=== PATIENT | female | born 1945 | race Caucasian/White ===

== ENCOUNTER 2020-05-14 06:47 | Day surgery (SDC) | payer MEDICARE ==
[2020-05-14] MEDS ORDERED: Midazolam 1 MG/ML 2 ML SDV ONE (07:04)
[2020-05-14] MEDS ORDERED: fentaNYL 100 MCG/2 ML SDV ONE (07:04)
[2020-05-14] MEDS ORDERED: Propofol 200 MG/20 ML SDV ONE (07:04)
[2020-05-14] MEDS ORDERED: Sodium Chloride 0.9% 1,000 ML IV SCH (07:30)
--- NOTE | 2020-05-14 13:14 | OR ---
DATE OF PROCEDURE: 05/14/2020 SURGEON: Candelario Roth MD PROCEDURE: Colonoscopy. FINDINGS: Normal colonoscopy. COMPLICATIONS: None. 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 ANESTHESIA: MAC. PREOPERATIVE DIAGNOSIS: Family history of colorectal cancer. POSTOPERATIVE DIAGNOSIS: Family history of colorectal cancer. RISKS: Risks, benefits, alternatives, and limitations including, but not limited to infection, bleeding, and perforation were explained to the patient. PREP: Acceptable, approximately 90% of the luminal surface could be seen with some liquid and solid stool remaining. PROCEDURE IN DETAIL: The patient was placed in left lateral decubitus position. Digital rectal exam was performed without abnormality. Scope was introduced and advanced atraumatically to the ileocecal valve. A photo was taken of this. The scope was brought back through the ascending, transverse, descending colon, and retroflexed. No evidence of old or new blood. No masses. No polyps. No diverticulosis or diverticulitis. No abnormalities on retroflexion. The patient tolerated the procedure well. Candelario Roth MD /[id number]
== END 2020-05-14 12:02 | disposition home or self-care (01) ==
LOC: JP.SDS 06:47
PROVIDERS: ATTEND Surgery
DX: Z12.11 Encounter for screening for malignant neoplasm of colon (principal); E78.5 Hyperlipidemia, unspecified; K21.9 Gastro-esophageal reflux disease without esophagitis; Z80.0 Family history of malignant neoplasm of digestive organs
CPT/HCPCS: G0105; J2250; J2704; J3010; J7030

== ENCOUNTER 2020-12-12 16:27 | Emergency (ER) | payer MEDICARE ==
[2020-12-12] MEDS ORDERED: HYDROmorphone 0.5 MG/0.5 ML Syringe IM ONE (17:45)
[2020-12-12] MEDS ORDERED: Diphtheria,Pertussis(Acell),Tetanus Vaccine 0.5 ML Syringe IM ONE (17:59)
[2020-12-12] MEDS ORDERED: Bacitracin Oint 1 GM U/D Packet TOP ONE (18:00)
--- NOTE | 2020-12-12 18:04 | EDM.PDOC ---
ED HPI GENERAL MEDICAL PROBLEM - General Chief Complaint: Upper Extremity Injury/Pain Stated Complaint: CUT FINGER Time Seen by Provider: 12/12/20 18:00 Source of Information: Reports: Patient, Old Records History Limitations: Reports: No Limitations - History of Present Illness INITIAL COMMENTS - FREE TEXT/NARRATIVE: 75 yo female got her R 5th finger tip caught in her basement door just before arrival. She thinks here last tetanus was in '91. Here with . 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 below) (none) Right Finger-Little Pain Score (Numeric/FACES): 10 - Related Data Allergies Allergy/AdvReac Type Severity Reaction Status Date / Time adhesive Allergy Rash Verified 12/12/20 17:15 latex Allergy Rash Verified 12/12/20 17:15 Sulfa (Sulfonamide Allergy Cannot Verified 12/12/20 17:15 Antibiotics) Remember Home Meds: Home Meds Ascorbic Acid [Vitamin C] 1,000 mg PO DAILY 10/31/14 [History] Aspirin [Halfprin] 81 mg PO DAILY 10/31/14 [History] Cholecalciferol (Vitamin D3) [Vitamin D-3] 2,000 unit PO DAILY 10/31/14 [History] Levothyroxine Sodium [Synthroid] 25 mcg PO ACBRK 10/31/14 [History] Magnesium Oxide [Magnesium] 400 mg PO BID 10/31/14 [History] Multivitamin with Minerals [Multiple Vitamin] 1 tab PO DAILY 10/31/14 [History] [place]-3S/DHA/Epa/Fish Oil [[place]-3 Fish Oil 1,000 mg Sfgl] 1 each PO DAILY 10/31/14 [History] Omeprazole 40 mg PO DAILY 10/31/14 [History] Calcium Carbonate/Vitamin D3 [Calcium Carbonate/Vitamin D 600 MG-200 Unit] 1 tab PO DAILY 05/10/20 [History] Cyanocobalamin (Vitamin B12) [Vitamin B12] 1,000 mcg PO DAILY 05/10/20 [History] L.acidoph,Paracasei, B.lactis [Probiotic] 1 each PO DAILY 05/10/20 [History] Naproxen 500 mg PO BID 05/10/20 [History] Past Medical History HEENT History: Reports: Impaired Vision Gastrointestinal History: Reports: GERD, Hiatal Hernia 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: Musculoskeletal History: Reports: Back Pain, Chronic, Osteoarthritis, Osteoporosis, Other (See Below) Other Musculoskeletal History: left knee pain Endocrine/Metabolic History: Reports: Hypothyroidism Dermatologic History: Reports: Eczema - Past Surgical History Head Surgeries/Procedures: Reports: None HEENT Surgical History: Reports: Tonsillectomy GI Surgical History: Reports: Colonoscopy, EGD Endocrine Surgical History: Reports: None Musculoskeletal Surgical History: Reports: None Other Musculoskeletal Surgeries/Procedures:: bilateral feet surgeries Dermatological Surgical History: Reports: None Social & Family History - Family History Family Medical History: No Pertinent Family History - Tobacco Use Tobacco Use Status *Q: Never Tobacco User Second Hand Smoke Exposure: No - Caffeine Use Caffeine Use: Reports: Coffee, Tea - Recreational Drug Use Recreational Drug Use: No Review of Systems - Review of Systems Review Of Systems: See Below Constitutional: Reports: No Symptoms Musculoskeletal: Reports: Hand Pain (R 5th finger pain) Skin: Reports: Wound (laceration of the R 5th finger tip) Neurological: Reports: No Symptoms ED EXAM, GENERAL - Physical Exam Exam: See Below Exam Limited By: No Limitations General Appearance: Alert, WD/WN, No Apparent Distress Extremities: Other (bleeding wound of the R 5th finger.) Neurological: Alert, Oriented, CN II-XII Intact, Normal Cognition, No Motor/Sensory Deficits Psychiatric: Normal Affect, Normal Mood Skin Exam: Warm, Dry, Normal Color, No Rash, Wound/Incision (laceration distal R 5th finger.) ED TRAUMA EXTREMITY PROCEDURES - Laceration/Wound Repair Right Distal Digit - 5th (Baby) Appearance: Subcutaneous, Linear, Clean Distal NVT: Neuro & Vascular Intact Anesthetic Type: Digital Local Anesthesia - Lidocaine (Xylocaine): 1% Plain Local Anesthetic Volume: 4cc Skin Prep: Saline Saline Irrigation (cc's): 30 Exploration/Debridement/Repair: Wound Explored, Minimal Debridement Closed With: Sutures Suture Size: 5-0 # of Sutures: 6 Suture Type: Nylon, Interrupted, Simple Drain Placement: No Sterile Dressing Applied: Nurse Tetanus Status Addressed: Yes Complications: No Course - Vital Signs Last Recorded V/S: Last Vital Signs Temp 36.6 C 12/12/20 17:21 Pulse 111 H 12/12/20 17:21 Resp 16 12/12/20 17:21 BP 154/101 H 12/12/20 17:21 Pulse Ox 97 12/12/20 17:21 - Orders/Labs/Meds Orders: Active Orders 24 hr Category Date Time Status Vaccines to be Administered [RC] PER UNIT ROUTINE Care 12/12/20 17:59 Active Fingers Fifth Digit Rt F9 [CR] Stat Exams 12/12/20 17:59 Taken Meds: Medications Discontinued Medications Generic Name Dose Route Start Last Admin Trade Name Freq PRN Reason Stop Dose Admin Bacitracin 1 dose 12/12/20 18:00 12/12/20 18:21 Bacitracin Oint 1 Gm TOP 12/12/20 18:01 1 dose ONETIME ONE Administration Cephalexin 500 mg 12/12/20 18:22 Keflex PO 12/12/20 18:23 ONETIME ONE Diphtheria/Tetanus/Acell Pertussis 0.5 ml 12/12/20 17:59 12/12/20 18:20 Boostrix IM 12/12/20 18:00 0.5 ml .ONCE ONE Administration Gelatin 1 each 12/12/20 19:11 Gelfoam 12-7 Mm TOP 12/12/20 19:12 ONETIME ONE Hydromorphone HCl 0.5 mg 12/12/20 17:45 12/12/20 17:59 Dilaudid IM 12/12/20 17:46 0.5 mg ONETIME ONE Administration Lidocaine HCl 5 ml 12/12/20 18:25 Xylocaine-Mpf 1% INJECT 12/12/20 18:26 ONETIME ONE - Radiology Interpretation Free Text/Narrative:: R 5th finger X-ray-tuft fx Departure - Departure Time of Disposition: 19:25 Disposition: Home, Self-Care 01 Condition: Fair Clinical Impression: Open fracture of tuft of distal phalanx of finger - Discharge Information *PRESCRIPTION DRUG MONITORING PROGRAM REVIEWED*: No *COPY OF PRESCRIPTION DRUG MONITORING REPORT IN PATIENT MELISSA: No Referrals: Robert Montesinos MD [Primary Care Provider] - Forms: ED Department Discharge Additional Instructions: Keep wound elevated above your heart. Keep wound clean for 3 days. Take acetaminophen for pain relief. Starting at bedtime tomorrow remove the current dressing and clean with 1/2 water and 1/2 peroxide. Dry. Apply antibiotic ointment and a new dressing. Stitches out in 9 days. Recheck sooner for signs of infection. Take cephalexin 500 mg every 8 hrs for 9 more doses. Sepsis Event Note (ED) - Evaluation Sepsis Screening Result: No Definite Risk - Focused Exam Vital Signs: Vital Signs Temp Pulse Resp BP Pulse Ox 12/12/20 17:21 36.6 C 111 H 16 154/101 H 97 12/12/20 17:15 36.6 C 111 H 16 154/101 H 97 - My Orders Last 24 Hours: My Active Orders 12/12/20 17:59 Vaccines to be Administered [RC] PER UNIT ROUTINE Fingers Fifth Digit Rt F9 [CR] Stat - Assessment/Plan Last 24 Hours: My Active Orders 12/12/20 17:59 Vaccines to be Administered [RC] PER UNIT ROUTINE Fingers Fifth Digit Rt F9 [CR] Stat
[2020-12-12] MEDS ORDERED: Cephalexin 250 MG Cap PO ONE (18:22)
[2020-12-12] MEDS ORDERED: Gelatin Sponge,Absorbable 12-7 mm Sponge TOP ONE (19:11)
[2020-12-12] MEDS ORDERED: Ondansetron 4 MG Tab.DIS PO ONE (19:27)
--- NOTE | 2020-12-13 10:15 | CR ---
Fingers Fifth Digit Rt F9 CLINICAL HISTORY: Trauma FINDINGS: There is soft tissue disruption in the distal fifth digit. There is a tuft fracture IMPRESSION: Tuft fracture fifth distal phalanx
== END 2020-12-12 19:50 | disposition home or self-care (01) ==
LOC: JP.ED 16:27
DX: S62.636B Displaced fracture of distal phalanx of right little finger, initial encounter for open fracture (principal); K21.9 Gastro-esophageal reflux disease without esophagitis; M19.90 Unspecified osteoarthritis, unspecified site; E03.9 Hypothyroidism, unspecified; Z23 Encounter for immunization; Z91.048 Other nonmedicinal substance allergy status; Z88.2 Allergy status to sulfonamides; Z91.040 Latex allergy status; Z79.82 Long term (current) use of aspirin; Z79.899 Other long term (current) drug therapy; W23.0XXA Caught, crushed, jammed, or pinched between moving objects, initial encounter; Y92.89 Other specified places as the place of occurrence of the external cause
CPT/HCPCS: 12001; 73140-26-F9; 73140-F9; 90471; 90715; 96372; 99283; 99283-25; A9270-GY; J1170

== ENCOUNTER 2021-06-13 16:00 | Emergency (ER) | payer MEDICARE ==
[2021-06-13] MEDS ORDERED: Aspirin 81 MG Tab.Chew PO ONE (17:32)
[2021-06-13] MEDS ORDERED: Lisinopril 10 MG Tab PO ONE (17:32)
--- NOTE | 2021-06-13 17:33 | EDM.PDOC ---
ED HPI GENERAL MEDICAL PROBLEM - General Chief Complaint: Neurological Problem Stated Complaint: POSSIBLE STROKE Time Seen by Provider: 06/13/21 17:05 Source of Information: Reports: Patient, Old Records, RN History Limitations: Reports: No Limitations - History of Present Illness INITIAL COMMENTS - FREE TEXT/NARRATIVE: 76 yo female presents after a 15 min episode about 8 AM today of R facial numbness, slurred speech, and R posterior hand numbness. She has been fully normal for her since then. She has noticed that her BP is running a little high all day. No KEARNS. No heart palpitations. She is a non-smoker. She is on ASA [address] Turcios is her primary and they called him today and he was not available so was directed to the ER. She recently had a carotid US ordered by her doctor for recurrent R hand numbness like what she had today. No hx of afib. Here with her . 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) - Related Data Allergies Allergy/AdvReac Type Severity Reaction Status Date / Time adhesive Allergy Rash Verified 06/13/21 16:24 latex Allergy Rash Verified 06/13/21 16:24 Sulfa (Sulfonamide Allergy Cannot Verified 06/13/21 16:24 Antibiotics) Remember Home Meds: Home Meds Ascorbic Acid [Vitamin C] 1,000 mg PO DAILY 10/31/14 [History] Aspirin [Halfprin] 81 mg PO DAILY 10/31/14 [History] Cholecalciferol (Vitamin D3) [Vitamin D-3] 2,000 unit PO DAILY 10/31/14 [History] Levothyroxine Sodium [Synthroid] 25 mcg PO ACBRK 10/31/14 [History] Magnesium Oxide [Magnesium] 400 mg PO BID 10/31/14 [History] Multivitamin with Minerals [Multiple Vitamin] 1 tab PO DAILY 10/31/14 [History] [place]-3S/DHA/Epa/Fish Oil [[place]-3 Fish Oil 1,000 mg Sfgl] 1 each PO DAILY 10/31/14 [History] Omeprazole 40 mg PO DAILY 10/31/14 [History] Calcium Carbonate/Vitamin D3 [Calcium Carbonate/Vitamin D 600 MG-200 Unit] 1 tab PO DAILY 05/10/20 [History] Cyanocobalamin (Vitamin B12) [Vitamin B12] 1,000 mcg PO DAILY 05/10/20 [History] L.acidoph,Paracasei, B.lactis [Probiotic] 1 each PO DAILY 05/10/20 [History] Past Medical History HEENT History: Reports: Impaired Vision Cardiovascular History: Reports: None Respiratory History: Reports: None Gastrointestinal History: Reports: GERD, Hiatal Hernia 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 States about 2 months about she had a masive headache on the left side Psychiatric History: Reports: None Endocrine/Metabolic History: Reports: Hypothyroidism Dermatologic History: Reports: Eczema - Infectious Disease History Infectious Disease History: Reports: Chicken Pox, Influenza, Measles, Mumps - Past Surgical History Head Surgeries/Procedures: Reports: None HEENT Surgical History: Reports: Tonsillectomy GI Surgical History: Reports: Colonoscopy, EGD Endocrine Surgical History: Reports: None Musculoskeletal Surgical History: Reports: None Other Musculoskeletal Surgeries/Procedures:: bilateral feet surgeries Dermatological Surgical History: Reports: None Social & Family History - Family History Family Medical History: No Pertinent Family History - Tobacco Use Tobacco Use Status *Q: Never Tobacco User - Caffeine Use Caffeine Use: Reports: Coffee - Recreational Drug Use Recreational Drug Use: No ED ROS GENERAL - Review of Systems Review Of Systems: See Below Constitutional: Reports: No Symptoms HEENT: Reports: No Symptoms Respiratory: Reports: No Symptoms Cardiovascular: Reports: No Symptoms. Denies: Palpitations GI/Abdominal: Reports: No Symptoms : Reports: No Symptoms Musculoskeletal: Reports: No Symptoms Skin: Reports: No Symptoms Neurological: Reports: Numbness (R face, R hand dorsum), Change in Speech (slurring) ED EXAM, NEURO - Physical Exam Exam: See Below Exam Limited By: No Limitations General Appearance: Alert, WD/WN, No Apparent Distress Eye Exam: Bilateral Eye: Normal Inspection Ears: Normal External Exam, Normal Canal, Hearing Grossly Normal, Normal TMs Nose: Normal Inspection, No Blood Throat/Mouth: Normal Inspection, Normal Lips, Normal Oropharynx, Normal Voice, No Airway Compromise Head Exam: Atraumatic, Normocephalic Neck: Normal Inspection Respiratory/Chest: No Respiratory Distress, Lungs Clear, Normal Breath Sounds, No Accessory Muscle Use Cardiovascular: Regular Rate, Rhythm, No Edema GI/Abdominal: Normal Bowel Sounds, Soft, Non-Tender, No Distention Neurological: Alert, Normal Mood/Affect, Normal Dorsiflexion, CN II-XII Intact, No Motor/Sensory Deficits, Oriented x 3, Other (no deficits) Back Exam: Normal Inspection Extremities: Normal Inspection, Normal Range of Motion, Non-Tender, No Pedal Edema Psychiatric: Normal Affect, Normal Mood Skin Exam: Warm, Dry, Intact, Normal Color, No Rash Course - Vital Signs Last Recorded V/S: Last Vital Signs Temp 36.4 C 06/13/21 16:22 Pulse 87 06/13/21 16:41 Resp 16 06/13/21 16:22 BP 156/81 H 06/13/21 16:22 Pulse Ox 95 06/13/21 16:22 - Orders/Labs/Meds Meds: Medications Discontinued Medications Generic Name Dose Route Start Last Admin Trade Name Peeweeq PRN Reason Stop Dose Admin Aspirin 243 mg 06/13/21 17:32 Aspirin 81 Mg Tab.Chew PO 06/13/21 17:33 ONETIME ONE Lisinopril 10 mg 06/13/21 17:32 Lisinopril 10 Mg Tab PO 06/13/21 17:33 ONETIME ONE Departure - Departure Time of Disposition: 17:50 Disposition: Home, Self-Care 01 Condition: Fair Clinical Impression: TIA (transient ischemic attack), Elevated blood pressure reading - Discharge Information *PRESCRIPTION DRUG MONITORING PROGRAM REVIEWED*: Not Applicable *COPY OF PRESCRIPTION DRUG MONITORING REPORT IN PATIENT MELISSA: Not Applicable Instructions: Transient Ischemic Attack, [id number], Hypertension, Adult, [id number] Referrals: Nick Turcios MD [Primary Care Provider] - Forms: ED Department Discharge Additional Instructions: I recommend you increase your aspirin to 325 mg daily with your largest meal. Take lisinopril 10 mg daily for your BP. Someone will contact you about wearing a Holter monitor to check for atrial fibrillation. Discuss with Dr. Turcios if he wants you to have an echocardiogram, see him for recheck within the week. Return if worse. Sepsis Event Note (ED) - Evaluation Sepsis Screening Result: No Definite Risk - Focused Exam Vital Signs: Vital Signs Temp Pulse Resp BP Pulse Ox 06/13/21 16:41 87 06/13/21 16:22 36.4 C 87 16 156/81 H 95
== END 2021-06-13 18:07 | disposition home or self-care (01) ==
LOC: JP.ED 16:00
DX: G45.9 Transient cerebral ischemic attack, unspecified (principal); K21.9 Gastro-esophageal reflux disease without esophagitis; E03.9 Hypothyroidism, unspecified; R03.0 Elevated blood-pressure reading, without diagnosis of hypertension; Z88.2 Allergy status to sulfonamides; Z79.82 Long term (current) use of aspirin; Z79.899 Other long term (current) drug therapy; Z91.040 Latex allergy status
CPT/HCPCS: 99284; A9270